=== PATIENT | male | born 1990 | race Caucasian/White ===

== ENCOUNTER → 2017-12-14 | Outpatient (REF) ==
--- NOTE | 2017-12-14 11:56 | RADIOLOGY IMAGING REPORT ---
FACILITY: [facility] PATIENT NAME: Huber Fenton : 1990 MR: [id number] V: [id number] EXAM DATE: ORDERING PHYSICIAN: ERIKA LIU TECHNOLOGIST: Location: [facility] Patient: Huber Fenton : 1990 Visit/Account:[id number] Date of Sevice: 12/14/2017 Exam type: CHEST SINGLE AP History: Health examination Comparison: None. Findings: Lungs are free of acute effusions, infiltrates or edema. The trachea is midline. No evidence of a p neumothorax or pneumomediastinum. The cardiac silhouette is normal in size. The visualized bones ar e grossly unremarkable. IMPRESSION: 1. No acute cardiopulmonary process is seen Report Dictated By: Addie Ayala MD at 12/14/2017 11:52 AM Report E-Signed By: Addie Ayala MD at 12/14/2017 11:53 AM WSN:[id number]
== END ==
LOC: RAD 09:57
PROVIDERS: ATTEND Physician Assistant Medical
DX: Z02.89 Encounter for other administrative examinations (principal)
CPT/HCPCS: 71045